=== PATIENT | female | born 1975 | race Caucasian/White ===

== ENCOUNTER → 2021-02-01 | Outpatient (CLI) | payer BC ==
[2021-02-01 16:23] VITALS: BP 155/99; PULSE 74; RESP 18; TEMP 98.2
--- NOTE | 2021-02-01 17:07 | P.GSHP ---
History of Present Illness H&P Date: 02/01/21 Chief Complaint: mass right breast Ina is a 45 year old white female seen in consultation for Dr. Milian/ Dr. Villanueva regarding a radiographic abnormality in the right breast. She had a bilateral mammogram performed on . This revealed an elliptical shaped de nsity within the parenchyma of the lateral portion of the right breast. Ultrasound was recommended. The left breast ultrasound was performed and 40s 1420 which revealed a complex cyst at the 3 o'clock position that may be amiable for aspiration delete BIRADS 4 designation was assigned to this. She then underwent a right breast ultrasound on 5520 and a solid-appearing nodule at 10:00 was identified which was 8 x 7 mm an ultrasound-guided core biopsy was recommended. The patient does not feel any lumps masses nodules or anything of concern in either breast. Additionally she is not complaining of any nipple discharge or skin changes. She has not had any recent trauma or infection of the breast. She's never had any biopsy of the breast. Caffeine: 1 monster in am/ 2 16 oz of cocoa/cola/day nicotine: 1PPD/18 years, is decreasing now Chocolate: Occasional Family history: father: lung cancer mother: cervical cancer maternal grandfather: colon cancer Hormonal history: Menarche: 13 , age at first : 29, breast fed: no periods had a mirena since 2006 no period since then Surgical history: gallbladder Retropubic bladder sling surgery January 18 Medical history: none Social History: Nicotine: Impacted daily for 18 years is decreasing now to one third pack a day Alcohol: Occasional Drugs: Negative - Constitutional Constitutional: Reports sweats - EENT Eyes: denies blurred vision, denies pain Ears: deny: decreased hearing, tinnitus Ears, nose, mouth and throat: Denies headache, Denies sore throat - Breasts Breasts: bilateral: as per HPI - Cardiovascular Cardiovascular: Denies chest pain, Denies shortness of breath - Respiratory Comment: smoker - Gastrointestinal Gastrointestinal: Denies abdominal pain, Denies diarrhea, Denies nausea, Denies vomiting - Genitourinary (Female) Comment: UTI several times a year Genitourinary: Denies dysuria, Denies hematuria - Menstruation Comment: [facility] prior to yadira has used this since 2006 - Musculoskeletal Musculoskeletal: Denies myalgias - Integumentary Integumentary: Denies pruritus, Denies rash - Neurological Neurological: Denies numbness, Denies weakness - Psychiatric Psychiatric: Denies anxiety, Denies depression - Endocrine Endocrine: Reports fatigue, Reports weight change - Hematologic/Lymphatic Comment: none - Allergic/Immunologic Allergic/Immunologic: Reports as per HPI Past Medical History Past Medical History: No Reported History History of Any Multi-Drug Resistant Organisms: None Reported Past Surgical History: Cholecystectomy Additional Past Surgical History / Comment(s): bladder sling 01/17/21 Past Anesthesia/Blood Transfusion Reactions: No Reported Reaction Past Psychological History: No Psychological Hx Reported Smoking Status: Current every day smoker - Past Family History Father Family Medical History: Cancer Additional Family Medical History / Comment(s): lung Mother Family Medical History: Cancer Additional Family Medical History / Comment(s): cervical cancer Medications and Allergies Home Medications Medication Instructions Recorded Confirmed Type Esomeprazole Magnesium [NexIUM] 20 mg PO DAILY 01/30/21 02/01/21 History Cholecalciferol [Vitamin D3 (25 50 mcg PO DAILY 02/01/21 02/01/21 History Mcg = 1000 Iu)] Allergies Allergy/AdvReac Type Severity Reaction Status Date / Time codeine AdvReac Nausea & Verified 02/01/21 16:17 Vomiting Surgical - Exam Vital Signs Temp Pulse Resp BP Pulse Ox 98.2 F 74 18 155/99 95 02/01/21 16:21 02/01/21 16:21 02/01/21 16:21 02/01/21 16:21 02/01/21 16:21 BMI 37.1 - General no distress - Eyes normal ocular movement - ENT no hearing loss - Neck no masses, trachea midline - Respiratory normal respiratory effort, clear to auscultation - Cardiovascular Heart Sounds: normal: S1, S2 - Abdomen Abdomen: soft - Integumentary normal turgor - Musculoskeletal normal gait - Psychiatric oriented to time, oriented to person, oriented to place, speech is normal, memory intact breast exam: BRA: 38D inspection: Right breast slightly larger than left breast, bilateral grade 2/3 ptosis Palpation: Right breast: Multi-positional exam fibrocystic changes, no dominant masses or nodules of concern Right axilla: No adenopathy of concern Left breast: Multi-positional exam fibrocystic changes, no dominant masses or nodules of concern Left axilla: No adenopathy of concern Assessment and Plan Assessment: Impression: 1. Fibrocystic breast changes 2. Abnormal bilateral ultrasound of the breast 3. Question regarding radiographic studies from multiple institutions Plan: 1. The patient is going to acquire her radiographic studies for us to review, depending on the review of the studies final recommendation to follow 2. Patient has been encouraged to stop smoking and decreased caffeine intake 3. I will see the patient back again as soon as we have the radiographic studies At this point the disc burner at [facility] is not functioning and the patient would be unable to acquire these films. CC: Dr. Villanueva, Dr. Milian Encounter 35 minutes, time spent in reviewing reports, physical examination, and counseling.
== END ==
LOC: WWCWWP 15:36
PROVIDERS: ATTEND Surgery
DX: N60.11 Diffuse cystic mastopathy of right breast (principal); N60.12 Diffuse cystic mastopathy of left breast; F17.210 Nicotine dependence, cigarettes, uncomplicated; Z88.5 Allergy status to narcotic agent

== ENCOUNTER → 2021-02-14 | Day surgery (SDC) | payer BC ==
[2021-02-14 12:11] VITALS: RESP 16
[2021-02-14 14:29] VITALS: BP 130/85; PULSE 89; TEMP 98.5
--- NOTE | 2021-02-14 14:39 | USB ---
EXAMINATION TYPE: US biopsy breast VAD RT, MG diagnostic mammo RT wo CAD, US breast aspiration single RT DATE OF EXAM: 02/14/2021 CLINICAL HISTORY: R92.8 Abnormal Mammogram. Abnormal ultrasound. TECHNIQUE: Ultrasound guided fine needle aspiration and core biopsy of right breast lesion with clip placement and follow-up mammogram. COMPARISON: Outside right breast ultrasound January 10, 2021 and outside mammogram December 20, 2020. FINDINGS: The procedure of ultrasound guided core biopsy was explained to the patient. Benefits, alternatives, and risks were discussed. An informed consent was then obtained. The patient was placed in supine positioning for imaging and for the procedure. Preprocedure ultrasound redemonstrated overall fibrocystic change with 9 mm round hypoechoic anechoic lesion deep 10:00 position right breast. The overlying skin was prepped and draped in usual sterile fashion. Lidocaine was used as anesthetic into the skin and subcutaneous tissue . Lidocaine with epinephrine is used as anesthetic into the deeper tissue up to area of concern in the right breast. Under ultrasound guidance, a 18-gauge needle was advanced into lesion and there was some aspiration of thick fluid. Because the lesion did not completely aspirate. Ultrasound-guided core biopsy was performed. Vacuum-assisted biopsy device was used to obtain 2 core samples. Following this, a biopsy clip was left in lesion. The patient tolerated the procedure well without any immediate complication. The patient was kept in the radiology department for short stay after the procedure and then discharged home in stable condition. Post procedure mammogram shows successful deployment of clip middle depth outer aspect at site of most prominent tissue along the anterior aspect of prior marked mammogram images. IMPRESSION: Successful, uncomplicated ultrasound guided fine needle aspiration and core biopsy of area of concern in the right breast, full pathology results to follow. Low index of suspicion noted at time of procedure. Pathology Results: High Risk RIGHT BREAST, TEN O'CLOCK, BIOPSY: Fibrocystic change with fragmented and benign fibrotic cyst wall, columnar cell change, focal usual ductal hyperplasia, focal microcalcification and focal features favoring atypical lobular hyperplasia (ALH). See note. A. RIGHT BREAST, 10:00 POSITION, ASPIRATE: Peripheral blood with acute and chronic inflammatory cells and favored cholesterol crystals on cytospins. Non- diagnostic for malignancy. B. RIGHT BREAST, 10:00 POSITION, ASPIRATE: Favor degenerated cyst contents and peripheral blood. Non-diagnostic for malignancy. Recommendation Surgical consult of the right breast. MTDD
== END ==
LOC: RADUSWWP 11:58
PROVIDERS: ATTEND Surgery
DX: N60.11 Diffuse cystic mastopathy of right breast (principal); N62 Hypertrophy of breast; R92.8 Other abnormal and inconclusive findings on diagnostic imaging of breast; Z88.5 Allergy status to narcotic agent
CPT/HCPCS: 88305; 88173; 77065; 19083; 10005; A4648; J2001; 76942

== ENCOUNTER 2021-02-15 18:09 | Emergency (ER) | payer BC ==
[2021-02-15 19:35] LABS: Appearance,Urine Clear (Clear); Bacteria,Urine Rare /hpf; Bilirubin,Urine Negative (Negative); Blood,Urine Small (Negative); Color,Urine Yellow; Glucose,Urine (UA) Negative (Negative); Ketones,Urine Negative (Negative); Leukocyte Esterase,Urine Negative (Negative); Mucus,Urine Rare /hpf; Nitrite,Urine Negative (Negative); PH, Urine 5.5 (5.0-8.0); Protein,Urine Trace (Negative); RBC,Urine 1 /hpf (0-5); Specific Gravity,Urine 1.009 (1.001-1.035); Squamous Epithelial Cell,Urine 2 /hpf (0-4); Urobilinogen,Urine <2.0 mg/dL (<2.0); WBC,Urine 1 /hpf (0-5)
[2021-02-15] MEDS ORDERED: ACETAMINOPHEN TAB 500 MG TAB PO STA (19:53)
--- NOTE | 2021-02-15 20:27 | XR ---
EXAMINATION: XR chest 1V portable DATE AND TIME: 02/15/2021 8:18 PM CLINICAL INDICATION: PHH; Fever TECHNIQUE: AP upright portable COMPARISON: None FINDINGS: The lungs are clear. The pleural spaces are negative. The cardiac silhouette is not enlarged. The remainder of the mediastinal silhouette is unremarkable. The skeletal structures and soft tissues are negative for acute findings. IMPRESSION: NO ACUTE PROCESS.
--- NOTE | 2021-02-15 20:51 | ED ---
Female Urogenital HPI - General Chief complaint: Urogenital Stated complaint: Fever Time Seen by Provider: 02/15/21 19:34 Source: patient Mode of arrival: ambulatory Limitations: no limitations - History of Present Illness Initial comments: 45 year-old female patient presents to the emergency department presents to the emergency department for evaluation of fever since the last 3 days. Patient had a bladder sling surgery about a month ago and is currently being treated for urinary tract infection. She is taking Cipro. She did previously take Macrobid for the same infection. Denies any cough or congestion. Denies sore throat. Denies nausea or vomiting. Denies any flank pain. Denies abnormal vaginal bleeding or discharge. She does have some abdominal cramping and urinary frequency but no dysuria. States she is fully vaccinated for COVID-19. Patient denies any recent rash, cough, shortness of breath, chest pain, diarrhea, constipation, back pain, numbness, tingling, dizziness, weakness, headache, visual changes, or any other complaints. - Related Data Home Medications Medication Instructions Recorded Confirmed Esomeprazole Magnesium [NexIUM] 20 mg PO DAILY 01/30/21 02/15/21 Cholecalciferol [Vitamin D3 (25 50 mcg PO DAILY 02/01/21 02/15/21 Mcg = 1000 Iu)] Ciprofloxacin HCl [Cipro] 500 mg PO BID 02/15/21 02/15/21 Allergies Allergy/AdvReac Type Severity Reaction Status Date / Time codeine AdvReac Nausea & Verified 02/15/21 22:32 Vomiting Review of Systems ROS Statement: Those systems with pertinent positive or pertinent negative responses have been documented in the HPI. ROS Other: All systems not noted in ROS Statement are negative. Past Medical History Past Medical History: No Reported History History of Any Multi-Drug Resistant Organisms: None Reported Past Surgical History: Cholecystectomy Additional Past Surgical History / Comment(s): bladder sling 01/17/21 Past Anesthesia/Blood Transfusion Reactions: No Reported Reaction Past Psychological History: No Psychological Hx Reported Smoking Status: Current every day smoker Past Alcohol Use History: Rare Past Drug Use History: None Reported - Past Family History Father Family Medical History: Cancer Additional Family Medical History / Comment(s): lung Mother Family Medical History: Cancer Additional Family Medical History / Comment(s): cervical cancer General Exam Limitations: no limitations General appearance: alert, in no apparent distress, other (Physical well- developed, well-nourished adult female patient in no acute distress. Vital signs upon presentation are temperature 100.6F, pulse 104, respirations 20, blood pressure 159/90, pulse ox 96% on room air.) Eye exam: Present: normal appearance, PERRL, EOMI. Absent: scleral icterus, conjunctival injection, periorbital swelling ENT exam: Present: normal exam, normal oropharynx, mucous membranes moist Respiratory exam: Present: normal lung sounds bilaterally. Absent: respiratory distress, wheezes, rales, rhonchi, stridor Cardiovascular Exam: Present: normal rhythm, tachycardia, normal heart sounds. Absent: systolic murmur, diastolic murmur, rubs, gallop, clicks GI/Abdominal exam: Present: soft, tenderness (suprapubic), normal bowel sounds. Absent: distended, guarding, rebound, rigid Neurological exam: Present: alert, oriented X3, CN II-XII intact Psychiatric exam: Present: normal affect, normal mood Skin exam: Present: warm, dry, intact, normal color. Absent: rash Course Vital Signs 02/15/21 02/15/21 02/15/21 18:29 21:00 22:40 Temperature 98.4 F 98.8 F Pulse Rate 104 H 93 96 Respiratory 20 18 18 Rate Blood Pressure 159/90 137/70 140/87 O2 Sat by Pulse 96 99 97 Oximetry Medical Decision Making - Medical Decision Making 45-year-old female patient presented to the emergency department today for evaluation of fever for the last 3 days. Physical examination is unremarkable. Abdomen soft, some mild tenderness in the suprapubic region. No CVA tenderness. Lungs are clear to auscultation. She had 100.6 temperature here, did give her some Tylenol. Labs reviewed and revealed normal white blood cell count. Lactic acid normal. Chest x-ray negative. Urinalysis shows no sign of infection. She is currently taking Cipro. Did discuss findings and results with her. We did obtain blood cultures. Instructed to continue the Cipro and to follow-up with her primary care physician for recheck in 1-2 days. Return parameters were discussed in detail. She verbalizes understanding and agrees with this plan. Case discussed with my attending Dr. Santos. - Lab Data Result diagrams: 02/15/21 Unknown 02/15/21 Unknown Lab Results 02/15/21 02/15/21 02/15/21 Range/Units 19:14 Unknown Unknown WBC 10.1 (3.8-10.6) k/uL RBC 4.52 (3.80-5.40) m/uL Hgb 14.4 (11.4-16.0) gm/dL Hct 42.7 (34.0-46.0) % MCV 94.4 (80.0-100.0) fL MCH 31.8 (25.0-35.0) pg MCHC 33.7 (31.0-37.0) g/dL RDW 12.9 (11.5-15.5) % Plt Count 331 (150-450) k/uL MPV 7.6 Neutrophils % 62 % Lymphocytes % 26 % Monocytes % 5 % Eosinophils % 4 % Basophils % 1 % Neutrophils # 6.2 (1.3-7.7) k/uL Lymphocytes # 2.7 (1.0-4.8) k/uL Monocytes # 0.5 (0-1.0) k/uL Eosinophils # 0.5 (0-0.7) k/uL Basophils # 0.1 (0-0.2) k/uL PT 9.7 (9.0-12.0) sec INR 0.9 (<1.2) APTT 21.0 L (22.0-30.0) sec Sodium (137-145) mmol/L Potassium (3.5-5.1) mmol/L Chloride (98-107) mmol/L Carbon Dioxide (22-30) mmol/L Anion Gap mmol/L BUN (7-17) mg/dL Creatinine (0.52-1.04) mg/dL Est GFR (CKD-EPI)AfAm (>60 ml/min/1.73 sqM) Est GFR (CKD-EPI)NonAf (>60 ml/min/1.73 sqM) Glucose (74-99) mg/dL Plasma Lactic Acid Abram (0.7-2.0) mmol/L Calcium (8.4-10.2) mg/dL Total Bilirubin (0.2-1.3) mg/dL AST (14-36) U/L ALT (4-34) U/L Alkaline Phosphatase (38-126) U/L Total Protein (6.3-8.2) g/dL Albumin (3.5-5.0) g/dL Urine Color Yellow Urine Appearance Clear (Clear) Urine pH 5.5 (5.0-8.0) Ur Specific Newton 1.009 (1.001-1.035) Urine Protein Trace H (Negative) Urine Glucose (UA) Negative (Negative) Urine Ketones Negative (Negative) Urine Blood Small H (Negative) Urine Nitrite Negative (Negative) Urine Bilirubin Negative (Negative) Urine Urobilinogen <2.0 (<2.0) mg/dL Ur Leukocyte Esterase Negative (Negative) Urine RBC 1 (0-5) /hpf Urine WBC 1 (0-5) /hpf Ur Squamous Epith Cells 2 (0-4) /hpf Urine Bacteria Rare H (None) /hpf Urine Mucus Rare H (None) /hpf Urine HCG, Qual (Not Detectd) Coronavirus (PCR) (Not Detectd) 02/15/21 02/15/21 02/15/21 Range/Units Unknown Unknown Unknown WBC (3.8-10.6) k/uL RBC (3.80-5.40) m/uL Hgb (11.4-16.0) gm/dL Hct (34.0-46.0) % MCV (80.0-100.0) fL MCH (25.0-35.0) pg MCHC (31.0-37.0) g/dL RDW (11.5-15.5) % Plt Count (150-450) k/uL MPV Neutrophils % % Lymphocytes % % Monocytes % % Eosinophils % % Basophils % % Neutrophils # (1.3-7.7) k/uL Lymphocytes # (1.0-4.8) k/uL Monocytes # (0-1.0) k/uL Eosinophils # (0-0.7) k/uL Basophils # (0-0.2) k/uL PT (9.0-12.0) sec INR (<1.2) APTT (22.0-30.0) sec Sodium 139 (137-145) mmol/L Potassium 4.6 (3.5-5.1) mmol/L Chloride 104 (98-107) mmol/L Carbon Dioxide 26 (22-30) mmol/L Anion Gap 9 mmol/L BUN 7 (7-17) mg/dL Creatinine 0.60 (0.52-1.04) mg/dL Est GFR (CKD-EPI)AfAm >90 (>60 ml/min/1.73 sqM) Est GFR (CKD-EPI)NonAf >90 (>60 ml/min/1.73 sqM) Glucose 91 (74-99) mg/dL Plasma Lactic Acid Abram 1.4 (0.7-2.0) mmol/L Calcium 9.9 (8.4-10.2) mg/dL Total Bilirubin 0.4 (0.2-1.3) mg/dL AST 142 H (14-36) U/L ALT 185 H (4-34) U/L Alkaline Phosphatase 99 (38-126) U/L Total Protein 7.6 (6.3-8.2) g/dL Albumin 4.7 (3.5-5.0) g/dL Urine Color Urine Appearance (Clear) Urine pH (5.0-8.0) Ur Specific Newton (1.001-1.035) Urine Protein (Negative) Urine Glucose (UA) (Negative) Urine Ketones (Negative) Urine Blood (Negative) Urine Nitrite (Negative) Urine Bilirubin (Negative) Urine Urobilinogen (<2.0) mg/dL Ur Leukocyte Esterase (Negative) Urine RBC (0-5) /hpf Urine WBC (0-5) /hpf Ur Squamous Epith Cells (0-4) /hpf Urine Bacteria (None) /hpf Urine Mucus (None) /hpf Urine HCG, Qual (Not Detectd) Coronavirus (PCR) Not Detected (Not Detectd) 02/15/21 Range/Units Unknown WBC (3.8-10.6) k/uL RBC (3.80-5.40) m/uL Hgb (11.4-16.0) gm/dL Hct (34.0-46.0) % MCV (80.0-100.0) fL MCH (25.0-35.0) pg MCHC (31.0-37.0) g/dL RDW (11.5-15.5) % Plt Count (150-450) k/uL MPV Neutrophils % % Lymphocytes % % Monocytes % % Eosinophils % % Basophils % % Neutrophils # (1.3-7.7) k/uL Lymphocytes # (1.0-4.8) k/uL Monocytes # (0-1.0) k/uL Eosinophils # (0-0.7) k/uL Basophils # (0-0.2) k/uL PT (9.0-12.0) sec INR (<1.2) APTT (22.0-30.0) sec Sodium (137-145) mmol/L Potassium (3.5-5.1) mmol/L Chloride (98-107) mmol/L Carbon Dioxide (22-30) mmol/L Anion Gap mmol/L BUN (7-17) mg/dL Creatinine (0.52-1.04) mg/dL Est GFR (CKD-EPI)AfAm (>60 ml/min/1.73 sqM) Est GFR (CKD-EPI)NonAf (>60 ml/min/1.73 sqM) Glucose (74-99) mg/dL Plasma Lactic Acid Abram (0.7-2.0) mmol/L Calcium (8.4-10.2) mg/dL Total Bilirubin (0.2-1.3) mg/dL AST (14-36) U/L ALT (4-34) U/L Alkaline Phosphatase (38-126) U/L Total Protein (6.3-8.2) g/dL Albumin (3.5-5.0) g/dL Urine Color Urine Appearance (Clear) Urine pH (5.0-8.0) Ur Specific Newton (1.001-1.035) Urine Protein (Negative) Urine Glucose (UA) (Negative) Urine Ketones (Negative) Urine Blood (Negative) Urine Nitrite (Negative) Urine Bilirubin (Negative) Urine Urobilinogen (<2.0) mg/dL Ur Leukocyte Esterase (Negative) Urine RBC (0-5) /hpf Urine WBC (0-5) /hpf Ur Squamous Epith Cells (0-4) /hpf Urine Bacteria (None) /hpf Urine Mucus (None) /hpf Urine HCG, Qual Not Detected (Not Detectd) Coronavirus (PCR) (Not Detectd) - Radiology Data Radiology results: report reviewed, image reviewed One view of the chest shows no acute process. Disposition Clinical Impression: Fever, Transaminitis Disposition: HOME SELF-CARE Condition: Good Instructions (If sedation given, give patient instructions): Fever in Adults (ED) Additional Instructions: Follow-up with the primary care physician for recheck in 1-2 days. Liver enzymes are elevated. Continue your antibiotics. Return to the emergency department for any new, worsening, or concerning symptoms. Is patient prescribed a controlled substance at d/c from ED?: No Referrals: Antonio Milian MD [Primary Care Provider] - 1-2 days Time of Disposition: 22:33
[2021-02-15] MEDS: SODIUM CHLORIDE 0.9% 500 ML 500 ML IV SCH ×2 (20:57→20:58)
[2021-02-15 21:04] LABS: Basophils # (A) 0.1 k/uL (0-0.2); Basophils % (A) 1 %; Eosinophils # (A) 0.5 k/uL (0-0.7); Eosinophils % (A) 4 %; HCT 42.7 % (34.0-46.0); HGB 14.4 gm/dL (11.4-16.0); Lymphocytes # (A) 2.7 k/uL (1.0-4.8); Lymphocytes % (A) 26 %; MCH 31.8 pg (25.0-35.0); MCHC 33.7 g/dL (31.0-37.0); MCV 94.4 fL (80.0-100.0); Mean Platelet Volume 7.6; Monocytes # (A) 0.5 k/uL (0-1.0); Monocytes % (A) 5 %; Neutrophils # (A) 6.2 k/uL (1.3-7.7); Neutrophils % (A) 62 %; Platelet Count 331 k/uL (150-450); RBC 4.52 m/uL (3.80-5.40); RDW 12.9 % (11.5-15.5); WBC 10.1 k/uL (3.8-10.6)
[2021-02-15 21:26] LABS: INR 0.9 (<1.2); Prothrombin Time 9.7 sec (9.0-12.0)
[2021-02-15 21:31] LABS: ALT 185 U/L (4-34); AST 142 U/L (14-36); African American GFR (CKD) >90 (>60 ml/min/1.73 sqM); Albumin 4.7 g/dL (3.5-5.0); Alkaline Phosphatase 99 U/L (38-126); Anion Gap 9 mmol/L; Blood Urea Nitrogen 7 mg/dL (7-17); Calcium 9.9 mg/dL (8.4-10.2); Carbon Dioxide 26 mmol/L (22-30); Chloride 104 mmol/L (98-107); Glucose 91 mg/dL (74-99); Non-African American GFR(CKD) >90 (>60 ml/min/1.73 sqM); Sodium 139 mmol/L (137-145); Total Bilirubin 0.4 mg/dL (0.2-1.3); Total Protein 7.6 g/dL (6.3-8.2)
[2021-02-15 21:39] LABS: Potassium 4.6 mmol/L (3.5-5.1)
[2021-02-15 21:53] VITALS: RESP 18
[2021-02-15 23:12] VITALS: BP 140/87; PULSE 96; TEMP 98.8
== END 2021-02-15 22:40 | disposition home or self-care (01) ==
LOC: EC 18:09
DX: R50.9 Fever, unspecified (principal); R74.01 Elevation of levels of liver transaminase levels; R10.30 Lower abdominal pain, unspecified; F17.200 Nicotine dependence, unspecified, uncomplicated; Z20.822 Contact with and (suspected) exposure to COVID-19
CPT/HCPCS: 36415; 71045; 80053; 81001; 81025; 83605; 85025; 85610; 85730; 87040; 87635; 99284

== ENCOUNTER → 2021-02-23 | Outpatient (CLI) | payer BC ==
[2021-02-23 13:58] VITALS: BP 126/84; PULSE 85; RESP 18; TEMP 98.4
--- NOTE | 2021-02-23 14:03 | P.PN ---
Subjective Progress Note Date: 02/23/21 Principal diagnosis: Atypical lobular hyperplasia on ultrasound-guided core biopsy of the right breast Ina is a 45-year-old of white female who underwent an ultrasound-guided core biopsy of the right breast and 6921. Pathology revealed atypical lobular hyperplasia. She tolerated the procedure without difficulty. The importance is the fact that she is scheduled in the near future for excision of vulvar lesion which was pre-cancer. This is going to be done in the [place] area. Objective - Vital Signs Vital signs: Vital Signs Temp 98.4 F 02/23/21 13:55 Pulse 85 02/23/21 13:55 Resp 18 02/23/21 13:55 BP 126/84 02/23/21 13:55 Pulse Ox 93 L 02/23/21 13:55 Intake & Output 02/22/21 02/23/21 02/23/21 18:59 06:59 18:59 Weight 101.151 kg - Exam BMI 37.1 - Constitutional General appearance: Present: cooperative - EENT Eyes: Present: EOMI ENT: Present: hearing grossly normal - Neck Neck: Present: normal ROM - Integumentary Integumentary Comment(s): Biopsy site clean and dry, no evidence of infection or hematoma - Musculoskeletal Musculoskeletal: Present: gait normal - Psychiatric Psychiatric: Present: A&O x's 3, appropriate affect, intact judgment & insight Assessment and Plan Assessment: Impression: 1. Atypical lobular hyperplasia right breast on ultrasound-guided core biopsy 2. Fibrocystic breast changes 3. Vulvar skin lesion which is precancerous being seen in the [facility] for excision Plan: 1. Needle localization excisional lumpectomy area of atypical lobular hyperplasia right breast, possible hyperplastic tissue transfer 2. Patient is going to have the vulvar skin lesion taken care of first in the [facility] Risks and benefits of the procedure discussed with the patient. She understands and wishes to proceed. This was scheduled in the near future. CC: Dr. Margaret Villanueva, Dr. Milian
== END ==
LOC: WWCWWP 13:03
PROVIDERS: ATTEND Surgery
DX: N60.91 Unspecified benign mammary dysplasia of right breast (principal); N60.19 Diffuse cystic mastopathy of unspecified breast; N90.89 Other specified noninflammatory disorders of vulva and perineum; Z88.5 Allergy status to narcotic agent

== ENCOUNTER → 2021-05-03 | Outpatient (CLI) | payer BC ==
[2021-05-03 08:51] VITALS: BP 156/96; PULSE 88; RESP 16; TEMP 98.4
--- NOTE | 2021-05-03 09:14 | P.PN ---
Subjective Progress Note Date: 05/03/21 Principal diagnosis: Atypical lobular hyperplasia right breast Ina is a 46-year-old white female status post ultrasound-guided core biopsy of the right breast on 6920. Pathology revealed atypical lobular hyperplasia. She tolerated the procedure without difficulty. She was scheduled for excision of vulvar lesion which was pretty cancer. This was performed on March 05, and she is healed well without difficulty. She is now going to undergo a needle localization and excision of the area of atypia on the right breast. She has also undergone a left breast ultrasound and recommendation as per Dr. Lux/radiology was repeat ultrasound in 6 months of the left side. Caffeine: 1 monster in am/ 2 16 oz of cocoa/cola/day nicotine: 1PPD/18 years, is decreasing now Chocolate: Occasional Family history: father: lung cancer mother: cervical cancer maternal grandfather: colon cancer Hormonal history: Menarche: 13 , age at first : 29, breast fed: no periods had a mirena since 2006 no period since then Surgical history: gallbladder Retropubic bladder sling surgery January 18 Medical history: none Social History: Nicotine: Impacted daily for 18 years is decreasing now to one third pack a day Alcohol: Occasional Drugs: Negative - Constitutional Constitutional: Reports sweats - EENT Eyes: denies blurred vision, denies pain Ears: deny: decreased hearing, tinnitus Ears, nose, mouth and throat: Denies headache, Denies sore throat - Breasts Breasts: bilateral: as per HPI - Cardiovascular Cardiovascular: Denies chest pain, Denies shortness of breath - Respiratory Comment: smoker - Gastrointestinal Gastrointestinal: Denies abdominal pain, Denies diarrhea, Denies nausea, Denies vomiting - Genitourinary (Female) Comment: UTI several times a year Genitourinary: Denies dysuria, Denies hematuria - Menstruation Comment: [facility] prior to yadira has used this since 2006 - Musculoskeletal Musculoskeletal: Denies myalgias - Integumentary Integumentary: Denies pruritus, Denies rash - Neurological Neurological: Denies numbness, Denies weakness - Psychiatric Psychiatric: Denies anxiety, Denies depression - Endocrine Endocrine: Reports fatigue, Reports weight change - Hematologic/Lymphatic Comment: none - Allergic/Immunologic Allergic/Immunologic: Reports as per HPI Objective - Vital Signs Vital signs: Vital Signs Temp 98.4 F 05/03/21 08:48 Pulse 88 05/03/21 08:48 Resp 16 05/03/21 08:48 BP 156/96 05/03/21 08:48 Pulse Ox 95 05/03/21 08:48 Intake & Output 05/02/21 05/03/21 05/03/21 18:59 06:59 18:59 Weight 92.079 kg - Exam BMI 34.8 - Constitutional General appearance: Present: cooperative - EENT Eyes: Present: EOMI ENT: Present: hearing grossly normal - Neck Neck: Present: normal ROM - Respiratory Respiratory: bilateral: CTA - Cardiovascular Heart sounds: normal: S1, S2 - Gastrointestinal General gastrointestinal: Present: soft - Integumentary Integumentary: Present: normal turgor - Musculoskeletal Musculoskeletal: Present: gait normal - Psychiatric Psychiatric: Present: A&O x's 3, appropriate affect, intact judgment & insight - Additional findings Additional findings: Breast Exam: BRA: 38C Inspection: Bilateral grade 2 ptosis Palpation: Right breast slightly larger than the left breast, multiple positional exam no dominant masses or nodules of concern Right axilla: No adenopathy of concern Left breast: Multiple positional exam no dominant masses or nodules of concern, fibrocystic changes Left axilla: No adenopathy of concern Assessment and Plan Assessment: Impression: 1. Atypical lobular hyperplasia right breast 2. Fibrocystic breast changes 3. Recent resection of vulvar lesion Plan: 1. Needle local excisional biopsy right breast lesion, possible undergo plastic tissue transfer 2. Repeat left breast ultrasound 6 months CC: Dr. Milian
== END | disposition home or self-care (01) ==
LOC: WWCWWP 08:31
PROVIDERS: ATTEND Surgery
DX: Z53.9 Procedure and treatment not carried out, unspecified reason (principal)

== ENCOUNTER 2021-05-15 09:44 | Day surgery (SDC) | payer BC, OTHER ==
[2021-05-10 09:15] VITALS: BMI 33.7
[~2021-05-15 09:44] MED LIST: DEXAMETHASONE SOD PHOSPHATE 4 MG/ML 1 ML VIAL IV ONE; HEPARIN SODIUM,PORCINE/PF 5,000 UNIT/0.5 ML SYRINGE SQ PRN; LACTATED RINGERS 1,000 ML IV SCH; LIDOCAINE 1% (10MG/ML) FOR IV START INTRADERMA PRN; ONDANSETRON 4 MG/2 ML VIAL IVP ONE; Pre Op ABX Message 1 EACH MISC MISCELLANE ONE; SCOPOLAMINE 1.5MG/72HR PATCH TRANSDERM ONE; fentaNYL (PF) 50 MCG/ML 2 ML AMP IV PRN
[2021-05-15] MEDS ORDERED: ALPRAZolam 0.5 MG TAB ONE (10:27)
[2021-05-15] MEDS ORDERED: LIDOCAINE 1% INJ 10MG/ML (20 ML MDV) SQ ONE ×3 (11:24→13:02)
[2021-05-15] MEDS ORDERED: DEXAMETHASONE SOD PHOSPHATE 4 MG/ML 1 ML VIAL IVP ONE (12:23)
[2021-05-15] MEDS ORDERED: SUCCINYLCHOLINE CHLORIDE VIAL 200 MG/10 ML VIAL IV ONE (12:36)
[2021-05-15] MEDS ORDERED: MIDAZOLAM 2 MG/2 ML VIAL ONE (12:36)
[2021-05-15] MEDS ORDERED: LIDOCAINE 1% INJ 10MG/ML (20 ML MDV) ONE (12:36)
[2021-05-15] MEDS ORDERED: ROCURONIUM 10 MG/ML (5 ML VIAL) IV ONE (12:36)
[2021-05-15] MEDS ORDERED: HYDROmorphone (PF) 1 MG/ML ONE (12:36)
[2021-05-15] MEDS ORDERED: fentaNYL (PF) 50 MCG/ML 2 ML AMP ONE (12:36)
--- NOTE | 2021-05-15 13:27 | P.OP ---
Date of Procedure: 05/15/21 Preoperative Diagnosis: Right breast core biopsy atypical lobular hyperplasia Postoperative Diagnosis: Same Procedure(s) Performed: needle localization excisional biopsy Anesthesia: KATHERINE Surgeon: Fide Lee Estimated Blood Loss (ml): 5 IV fluids (ml): 700 Pathology: other (Breast tissue) Condition: stable Disposition: same day Indications for Procedure: Core Biopsy atypical lobular hyperplasia Operative Findings: Dense breast tissue Description of Procedure: Following needle localization the area of concern in the right breast was prepped and draped in a sterile fashion. An incision was made and carried down the shaft of the needle into the surrounding tissue. The tissue was very dense. The specimen was removed and painted for orientation. Clips were placed into the cavity to localize the cavity. The specimen was radiographed and the area of concern had been removed. The wound was well irrigated. After we were assured that hemostasis was attained the deep tissues were closed using 3-0 Vicryl suture. The skin was closed using 4-0 Monocryl. Patient tolerated the procedure in stable condition. All instrument and sponge counts were correct at the end of the case
--- NOTE | 2021-05-15 13:30 | P.DS ---
Providers Attending physician: Fide Lee Primary care physician: Rafal Milian Plan - Discharge Summary Discharge Rx Participant: Yes New Discharge Prescriptions: No Action Esomeprazole Magnesium [NexIUM] 20 mg PO DAILY Discharge Medication List Esomeprazole Magnesium [NexIUM] 20 mg PO DAILY 01/30/21 [History] Follow up Appointment(s)/Referral(s): Fide Lee MD [STAFF PHYSICIAN] - 05/24/21 11:20 am Activity/Diet/Wound Care/Special Instructions: do not drive today may shower after 48 hours wear bra at all times unless showering Discharge Disposition: HOME SELF-CARE
[2021-05-15 13:51] VITALS: TEMP 98
[2021-05-15 14:51] VITALS: RESP 20
[2021-05-15 15:15] VITALS: BP 123/84; PULSE 77
--- NOTE | 2021-05-15 15:47 | MM ---
EXAMINATION TYPE: MG pre op needle loc RT DATE OF EXAM: 05/15/2021 COMPARISON: NONE CLINICAL HISTORY: Abnormal biopsy TECHNIQUE: Needle localization with wire placement and surgical excision of area of concern in the right breast. FINDINGS: The procedure of needle localization with wire placement for surgical excision was explained to the patient. Risk, benefits, and alternatives were discussed. An informed consent was then obtained. A timeout was performed. The overlying skin was prepped and draped in usual sterile fashion. Lidocaine 1% was used as anesthetic into the skin and subcutaneous tissue up to the level of area of concern. A 5 cm needle was used. This was placed via a lateral approach under mammographic guidance. Subsequent 90 degrees mammogram show the needle to be in satisfactory position relative to the targeted area. The wire was placed through the needle with difficulty and the needle was withdrawn. As the wire could not be advanced out of the tip of the needle this was felt to be not adequately advanced and the procedure was repeated with a 7 cm needle. With difficulty the wire was deployed which is in good position for surgical localization to this very hard tissue. The wire was fixed to patient's skin. Images were marked for surgeon. The patient tolerated the procedure well. Patient did have bleeding which required compression during this procedure. Images are reviewed and the case discussed with the referring surgeon. Specimen: The wires and the targeted surgical clip are identified within the specimen mammogram. IMPRESSION: 1. Successful wire localization and excision. Recommendations: 1. Recommendations are pending pathology results. Pathology Results: Benign RIGHT BREAST, NEEDLE LOCALIZATION EXCISION: Focal atypical lobular hyperplasia (ALH) in a background of fibrocystic changes including focal moderate to florid usual type ductal hyperplasia and calcifications. 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 Negative for malignancy. Recommendation Follow up mammogram of the right breast in 6 months. LIBBY
== END 2021-05-15 15:17 | disposition home or self-care (01) ==
LOC: OR 09:44
PROVIDERS: ATTEND Surgery
DX: N60.91 Unspecified benign mammary dysplasia of right breast (principal); N60.11 Diffuse cystic mastopathy of right breast; F17.210 Nicotine dependence, cigarettes, uncomplicated; Z80.49 Family history of malignant neoplasm of other genital organs; Z80.1 Family history of malignant neoplasm of trachea, bronchus and lung; Z80.0 Family history of malignant neoplasm of digestive organs; Z90.49 Acquired absence of other specified parts of digestive tract; R92.1 Mammographic calcification found on diagnostic imaging of breast
CPT/HCPCS: 19125; 88307; 76098; 19281; C1819 ×2; J2250; J0330; J1100; J2405; J2001; J3010; J1170; J1644

== ENCOUNTER → 2021-05-24 | Outpatient (CLI) | payer BC, OTHER ==
[2021-05-24 11:48] VITALS: BP 129/84; PULSE 76; RESP 16; TEMP 98.1
--- NOTE | 2021-05-24 12:05 | P.PN ---
Progress Note - Text Progress Note Date: 05/24/21 Ina is a 46-year-old white female status post needle local and excisional biopsy of the right breast on 9720. Pathology revealed focal atypical lobular hyperplasia in a background of fibrocystic changes. The patient has done well postoperatively. Bindu risk evaluation was performed: 5 year risk: 2.8% lifetime risk: 23.2 % Physical Exam: lungs: clear heart: RRR I have discussed risk reduction hormonal prophylaxis. The patient at this time is not interested. Plan: Repeat right breast mammogram in 6 months with physician exam at that time CC: Dr. Milian
== END | disposition home or self-care (01) ==
LOC: WWCWWP 11:14
PROVIDERS: ATTEND Surgery
DX: Z53.9 Procedure and treatment not carried out, unspecified reason (principal)

== ENCOUNTER → 2021-08-08 | Outpatient (CLI) | payer BC, OTHER ==
--- NOTE | 2021-08-09 08:42 | USB ---
Reason for exam: additional evaluation requested from abnormal screening. History: Patient has history of high-risk lesion on a previous biopsy at age 45. Benign MG pre op needle loc RT of the right breast, May 15, 2021. High risk US breast aspiration single RT of the right breast, February 14, 2021. High risk US biopsy breast VAD RT of the right breast, February 14, 2021. Physical Findings: Nurse did not find any significant physical abnormalities on exam. US Breast Limited LT Technologist: Margaret Kemp Left limited breast ultrasound including focal area of concern, retroareolar and axilla demonstrates a 0.4 x 0.6 x 0.3cm lesion at 12 o'clock, a 0.6 x 0.9 x 0.4cm cystic cluster at 2 o'clock, a 0.9 x 0.7 x 0.6cm lesion at 3 o'clock, may have interval echoes, short term follow up recommended, a 1.0 x 0.7 x 0.6cm cystic lesion at 4 o'clock and a 0.9 x 0.9 x 0.7cm cystic lesion at the nipple. These results were verbally communicated with the patient and result sheet given to the patient on 08/08/21. ASSESSMENT: Probably benign, BI-RAD 3 RECOMMENDATION: Ultrasound of the left breast in 6 months.
== END | disposition home or self-care (01) ==
LOC: RADUSWWP 14:53
PROVIDERS: ATTEND Surgery
DX: R92.8 Other abnormal and inconclusive findings on diagnostic imaging of breast (principal)

== ENCOUNTER → 2021-08-16 | Outpatient (CLI) | payer BC, OTHER ==
[2021-08-16 15:51] VITALS: BP 143/96; PULSE 83; RESP 18; TEMP 97.7
--- NOTE | 2021-08-16 16:02 | P.PN ---
Subjective Progress Note Date: 08/16/21 Principal diagnosis: Fibrocystic breast changes, atypical lobular hyperplasia right breast Atypical lobular hyperplasia right breast Ina is a 46-year-old white female status post ultrasound-guided core biopsy of the right breast on 6920. Pathology revealed atypical lobular hyperplasia. She tolerated the procedure without difficulty. She was scheduled for excision of vulvar lesion which was pre cancer. This was performed on March 05, and she healed well without difficulty. She then underwent a needle localization and excision of the area of atypia in the right breast. This was performed on 9720. This revealed focal atypical lobular hyperplasia in a background of fibrocystic changes including focal moderate to florid usual type ductal hyperplasia and calcifications, negative for malignancy. She has also undergone a left breast ultrasound and recommendation as per Dr. Lux/radiology was repeat ultrasound in 6 months of the left side. She had a repeat left breast ultrasound on which revealed a 0.4 x 0.6 cm lesion at 12:00 0.6 x 0.9 cm cystic cluster at 2:00 Circumflex 0.9 x 0.7 cm lesion at 3:00 1 x 0.7 cm cystic lesion at 4:00 In the 0.9 x 0.9 cm cystic lesion at the nipple The lesion at 3:00 was felt to have questionable internal echoes in short-term follow-up in 6 months was recommended. The patient has not noted any new changes in her breast. Bindu Risk Analysis: 5 year risk: 2.8 lifetime risk: 23.2% We have discussed chemoprevention at this time the patient has declined. Caffeine: stopped 1 monster in am/ stopped 2 16 oz of coca/cola/day nicotine: 1PPD/18 years, is decreasing now Chocolate: Occasional Family history: father: lung cancer mother: cervical cancer maternal grandfather: colon cancer Hormonal history: Menarche: 13 , age at first : 29, breast fed: no periods had a mirena since 2006 no period since then Surgical history: gallbladder Retropubic bladder sling surgery January 18, 2021 Medical history: none Social History: Nicotine: 1 pack daily for 18 years is decreasing now to one third pack a day Alcohol: Occasional Drugs: Negative - Constitutional Constitutional: Reports sweats - EENT Eyes: denies blurred vision, denies pain Ears: deny: decreased hearing, tinnitus Ears, nose, mouth and throat: Denies headache, Denies sore throat - Breasts Breasts: bilateral: as per HPI - Cardiovascular Cardiovascular: Denies chest pain, Denies shortness of breath - Respiratory Comment: smoker - Gastrointestinal Gastrointestinal: Denies abdominal pain, Denies diarrhea, Denies nausea, Denies vomiting - Genitourinary (Female) Comment: UTI several times a year Genitourinary: Denies dysuria, Denies hematuria - Menstruation Comment: [facility] prior to yadira has used this since 2006 - Musculoskeletal Musculoskeletal: Denies myalgias - Integumentary Integumentary: Denies pruritus, Denies rash - Neurological Neurological: Denies numbness, Denies weakness - Psychiatric Psychiatric: Denies anxiety, Denies depression - Endocrine Endocrine: Reports fatigue, Reports weight change - Hematologic/Lymphatic Comment: none - Allergic/Immunologic Allergic/Immunologic: Reports as per HPI Objective - Constitutional General appearance: Present: cooperative - EENT Eyes: Present: EOMI ENT: Present: hearing grossly normal - Neck Neck: Present: normal ROM - Respiratory Respiratory: bilateral: CTA - Cardiovascular Heart sounds: normal: S1, S2 - Integumentary Integumentary: Present: normal turgor - Musculoskeletal Musculoskeletal: Present: gait normal - Psychiatric Psychiatric: Present: A&O x's 3, appropriate affect, intact judgment & insight - Additional findings Additional findings: Breast Exam: BRA: 38C Inspection: Grade 2 ptosis bilaterally Palpation: Right breast slightly larger than left breast, multi-positional exam no dominant masses or nodules of concern Right axilla: No adenopathy of concern Left breast: Multi-positional exam no dominant masses or nodules of concern fibrocystic changes Left axilla: No adenopathy of concern Assessment and Plan Assessment: Impression: 1. Atypical lobular hyperplasia right breast 2. Fibrocystic breast changes 3. Resection of vulvar lesion 4. Recent left breast ultrasound benign BIRADS 3 Plan: 1. Repeat ultrasound of the left breast in 6 months 2. Bilateral mammogram in December 2020 with physician exam at that time 3. Patient follow up sooner and her questions or concerns CC: Dr. Margaret Villanueva
== END ==
LOC: WWCWWP 15:39
PROVIDERS: ATTEND Surgery
DX: Z53.9 Procedure and treatment not carried out, unspecified reason (principal)

== ENCOUNTER 2021-10-09 09:19 | Observation (INO) | payer BC, OTHER ==
[2021-10-09] MEDS ORDERED: methylPREDNISolone SOD SUCCI 125 MG/2 ML VIAL IV STA (09:36)
[2021-10-09] MEDS ORDERED: IPRATROPIUM 0.5 MG/2.5 ML NEBU INHALATION STA (09:36)
[2021-10-09] MEDS ORDERED: SODIUM CHLORIDE 0.9% 500 ML 500 ML IV STA (09:36)
[2021-10-09] MEDS ORDERED: ALBUTEROL NEBULIZED 2.5 MG/3 ML INHALATION STA (09:36)
--- NOTE | 2021-10-09 09:41 | ED ---
General Adult HPI - General Chief complaint: Shortness of Breath Stated complaint: PAUL/Cough Time Seen by Provider: 10/09/21 09:20 Source: patient, family, RN notes reviewed, old records reviewed Mode of arrival: ambulatory Limitations: no limitations - History of Present Illness Initial comments: This is a 46-year-old female presents to the emergency department complaining of a cough and shortness of breath since September 17. Patient states she has been on antibiotics and steroids and was tested for COVID which was negative. Patient states she continues to cough and short of breath so she decided come the emergency department. Patient states she also took a course of doxycycline. Patient states she is a smoker. Patient denies any calf pain patient denies any leg swelling. Patient denies any chest pain or palpitations. Patient denies any abdominal pain patient's nausea vomiting diarrhea per patient denies headache patient denies numbness weakness per patient denies any lightheadedness or dizziness. - Related Data Home Medications Medication Instructions Recorded Confirmed Albuterol Sulfate [Proair Hfa] 1 puff INHALATION RT-Q4H PRN 10/09/21 10/09/21 Esomeprazole Magnesium [NexIUM 20 mg PO DAILY 10/09/21 10/09/21 24Hr] Allergies Allergy/AdvReac Type Severity Reaction Status Date / Time codeine AdvReac Nausea & Verified 10/09/21 11:14 Vomiting Review of Systems ROS Statement: Those systems with pertinent positive or pertinent negative responses have been documented in the HPI. ROS Other: All systems not noted in ROS Statement are negative. Past Medical History Past Medical History: GERD/Reflux History of Any Multi-Drug Resistant Organisms: None Reported Past Surgical History: Bladder Surgery, Cholecystectomy Additional Past Surgical History / Comment(s): Bladder sling, vulvar surgery for neoplasm. Past Anesthesia/Blood Transfusion Reactions: No Reported Reaction Additional Past Anesthesia/Blood Transfusion Reaction / Comment(s): "Low O2 with one surgery". Past Psychological History: No Psychological Hx Reported Smoking Status: Current every day smoker Past Alcohol Use History: None Reported Past Drug Use History: None Reported - Past Family History Father Family Medical History: Cancer Additional Family Medical History / Comment(s): Lung cancer. Mother Family Medical History: Cancer Additional Family Medical History / Comment(s): Cervical cancer. Sister(s) Family Medical History: Deep Vein Thrombosis (DVT) General Exam - General Exam Comments Initial Comments: GENERAL: Patient is well-developed and well-nourished. Patient is nontoxic and well-hydrated and is in mild distress. ENT: Neck is soft and supple. No significant lymphadenopathy is noted. Oropharynx is clear. Moist mucous membranes. Neck has full range of motion without eliciting any pain. EYES: The sclera were anicteric and conjunctiva were pink and moist. Extraocular movements were intact and pupils were equal round and reactive to light. Eyelids were unremarkable. PULMONARY: Patient has limited air movement and has diffuse wheezing. CARDIOVASCULAR: There is a regular rate and rhythm without any murmurs gallops or rubs. ABDOMEN: Soft and nontender with normal bowel sounds. SKIN: Skin is clear with no lesions or rashes and otherwise unremarkable. NEUROLOGIC: Patient is alert and oriented x3. Cranial nerves II through XII are grossly intact. Motor and sensory are also intact. Normal speech, volume and content. Symmetrical smile. MUSCULOSKELETAL: Normal extremities with adequate strength and full range of motion. LYMPHATICS: No significant lymphadenopathy is noted PSYCHIATRIC: Normal psychiatric evaluation. Limitations: no limitations Course Vital Signs 10/09/21 10/09/21 10/09/21 09:21 09:50 10:20 Temperature 97.7 F Pulse Rate 106 H 98 Respiratory 20 20 22 Rate Blood Pressure 152/101 159/101 O2 Sat by Pulse 92 L 92 L Oximetry 10/09/21 10/09/21 11:28 11:36 Temperature Pulse Rate 96 94 Respiratory 18 18 Rate Blood Pressure O2 Sat by Pulse Oximetry Medical Decision Making - Medical Decision Making Patient has been on 11 days of steroids. Patient states anytime she gets relief is when she is taking an albuterol treatment from her mother's nebulizer. Patient received 2 albuterol treatments here he continues to wheeze and feel tight around the chest. Patient also received steroids. Chest x-ray shows no acute abnormality. I spoke with some physicians he agreed to admit the patient admitted the patient remaining orders. I consulted pulmonary. - Lab Data Result diagrams: 10/09/21 10:07 10/09/21 10:07 Lab Results 10/09/21 10/09/21 10/09/21 Range/Units 10:07 10:07 10:07 WBC 9.6 (3.8-10.6) k/uL RBC 4.54 (3.80-5.40) m/uL Hgb 14.9 (11.4-16.0) gm/dL Hct 45.1 (34.0-46.0) % MCV 99.2 (80.0-100.0) fL MCH 32.9 (25.0-35.0) pg MCHC 33.1 (31.0-37.0) g/dL RDW 12.5 (11.5-15.5) % Plt Count 300 (150-450) k/uL MPV 7.8 Neutrophils % 57 % Lymphocytes % 25 % Monocytes % 6 % Eosinophils % 11 % Basophils % 1 % Neutrophils # 5.4 (1.3-7.7) k/uL Lymphocytes # 2.3 (1.0-4.8) k/uL Monocytes # 0.6 (0-1.0) k/uL Eosinophils # 1.0 H (0-0.7) k/uL Basophils # 0.1 (0-0.2) k/uL PT 9.9 (9.0-12.0) sec INR 0.9 (<1.2) APTT 23.9 (22.0-30.0) sec D-Dimer 0.19 (<0.60) mg/L FEU Sodium 136 L (137-145) mmol/L Potassium 4.7 (3.5-5.1) mmol/L Chloride 103 (98-107) mmol/L Carbon Dioxide 23 (22-30) mmol/L Anion Gap 10 mmol/L BUN 10 (7-17) mg/dL Creatinine 0.54 (0.52-1.04) mg/dL Est GFR (CKD-EPI)AfAm >90 (>60 ml/min/1.73 sqM) Est GFR (CKD-EPI)NonAf >90 (>60 ml/min/1.73 sqM) Glucose 102 H (74-99) mg/dL Plasma Lactic Acid Abram (0.7-2.0) mmol/L Calcium 9.2 (8.4-10.2) mg/dL Magnesium 2.2 (1.6-2.3) mg/dL Total Bilirubin 1.2 (0.2-1.3) mg/dL AST 28 (14-36) U/L ALT 24 (4-34) U/L Alkaline Phosphatase 60 (38-126) U/L Troponin I (0.000-0.034) ng/mL Total Protein 7.6 (6.3-8.2) g/dL Albumin 4.5 (3.5-5.0) g/dL Coronavirus (PCR) (Not Detectd) 10/09/21 10/09/21 10/09/21 Range/Units 10:07 10:07 10:07 WBC (3.8-10.6) k/uL RBC (3.80-5.40) m/uL Hgb (11.4-16.0) gm/dL Hct (34.0-46.0) % MCV (80.0-100.0) fL MCH (25.0-35.0) pg MCHC (31.0-37.0) g/dL RDW (11.5-15.5) % Plt Count (150-450) k/uL MPV Neutrophils % % Lymphocytes % % Monocytes % % Eosinophils % % Basophils % % Neutrophils # (1.3-7.7) k/uL Lymphocytes # (1.0-4.8) k/uL Monocytes # (0-1.0) k/uL Eosinophils # (0-0.7) k/uL Basophils # (0-0.2) k/uL PT (9.0-12.0) sec INR (<1.2) APTT (22.0-30.0) sec D-Dimer (<0.60) mg/L FEU Sodium (137-145) mmol/L Potassium (3.5-5.1) mmol/L Chloride (98-107) mmol/L Carbon Dioxide (22-30) mmol/L Anion Gap mmol/L BUN (7-17) mg/dL Creatinine (0.52-1.04) mg/dL Est GFR (CKD-EPI)AfAm (>60 ml/min/1.73 sqM) Est GFR (CKD-EPI)NonAf (>60 ml/min/1.73 sqM) Glucose (74-99) mg/dL Plasma Lactic Acid Abram 2.0 (0.7-2.0) mmol/L Calcium (8.4-10.2) mg/dL Magnesium (1.6-2.3) mg/dL Total Bilirubin (0.2-1.3) mg/dL AST (14-36) U/L ALT (4-34) U/L Alkaline Phosphatase (38-126) U/L Troponin I <0.012 (0.000-0.034) ng/mL Total Protein (6.3-8.2) g/dL Albumin (3.5-5.0) g/dL Coronavirus (PCR) Not Detected (Not Detectd) Disposition Clinical Impression: Acute exacerbation of chronic obstructive pulmonary disease Disposition: ADMITTED IP TO THIS HOSP Referrals: Antonio Milian MD [Primary Care Provider] - 1-2 days Time of Disposition: 11:53
--- NOTE | 2021-10-09 10:44 | XR ---
EXAMINATION TYPE: XR chest 2V DATE OF EXAM: 10/09/2021 COMPARISON: 02/16/2020 HISTORY: Chest pain TECHNIQUE: Frontal and lateral views of the chest are obtained. FINDINGS: There is no focal air space opacity. No evidence for pneumothorax. No pleural effusion. The cardiac silhouette size is within normal limits. The osseous structures are grossly intact. IMPRESSION: 1. No acute cardiopulmonary process.
[2021-10-09 11:06] LABS: Basophils # (A) 0.1 k/uL (0-0.2); Basophils % (A) 1 %; Eosinophils % (A) 11 %; HCT 45.1 % (34.0-46.0); HGB 14.9 gm/dL (11.4-16.0); Lymphocytes # (A) 2.3 k/uL (1.0-4.8); Lymphocytes % (A) 25 %; MCH 32.9 pg (25.0-35.0); MCHC 33.1 g/dL (31.0-37.0); MCV 99.2 fL (80.0-100.0); Mean Platelet Volume 7.8; Monocytes # (A) 0.6 k/uL (0-1.0); Monocytes % (A) 6 %; Neutrophils # (A) 5.4 k/uL (1.3-7.7); Neutrophils % (A) 57 %; Platelet Count 300 k/uL (150-450); RBC 4.54 m/uL (3.80-5.40); RDW 12.5 % (11.5-15.5); WBC 9.6 k/uL (3.8-10.6)
[2021-10-09 11:10] LABS: AST 28 U/L (14-36); African American GFR (CKD) >90 (>60 ml/min/1.73 sqM); Albumin 4.5 g/dL (3.5-5.0); Alkaline Phosphatase 60 U/L (38-126); Carbon Dioxide 23 mmol/L (22-30); Glucose 102 mg/dL (74-99); Non-African American GFR(CKD) >90 (>60 ml/min/1.73 sqM); Total Protein 7.6 g/dL (6.3-8.2)
[2021-10-09 11:12] LABS: ALT 24 U/L (4-34); Anion Gap 10 mmol/L; Blood Urea Nitrogen 10 mg/dL (7-17); Calcium 9.2 mg/dL (8.4-10.2); Chloride 103 mmol/L (98-107); Magnesium 2.2 mg/dL (1.6-2.3); Sodium 136 mmol/L (137-145); Total Bilirubin 1.2 mg/dL (0.2-1.3)
[2021-10-09 11:15] LABS: Potassium 4.7 mmol/L (3.5-5.1)
[2021-10-09 11:27] LABS: INR 0.9 (<1.2); Partial Thromboplastin Time 23.9 sec (22.0-30.0); Prothrombin Time 9.9 sec (9.0-12.0)
[2021-10-09] MEDS ORDERED: IPRATROPIUM-ALBUTEROL 3 ML NEB INHALATION PRN (11:56)
[2021-10-09] MEDS: NICOTINE 21MG/24HR PATCH TRANSDERM SCH (13:45)
--- NOTE | 2021-10-09 13:55 | P.CNPUL ---
History of Present Illness Consult date: 10/09/21 Requesting physician: Terri Land Reason for consult: dyspnea, COPD Chief complaint: Shortness of breath, cough, congestion History of present illness: This is a very pleasant 46-year-old female patient who forced with Dr. Milian as her primary care provider. She has a history of chronic and ongoing tobacco dependence, chronic obstructive pulmonary disease on Xopenex as needed in the ou tpatient setting, obesity, gastroesophageal reflux disease, benign breast biopsy, vulvar surgery for neoplasm. She presented to the emergency room yesterday with complaints of increasing shortness of breath cough and congestion. She had been on steroids and antibiotics in the outpatient test setting without much improvement. COVID-19 screen was negative. She has received both vaccine and is boosted. She is seen today in consultation in the emergency department. She currently sitting up on the stretcher. Awake and alert in no acute distress. Breathing a bit easier today compared to yesterday. She does still have wheezing and dyspnea on minimal exertion. She is maintaining O2 saturations in the 90s on 2 L/m per nasal cannula. She's been afebrile. Hemodynamically stable. White count 9.6. Hemoglobin 14.9. D-dimer 0.19. Sodium 126. Potassium 4.7. Creatinine 0.54. Troponin negative 1. Chest x-ray reveals no acute pulmonary process. Review of Systems REVIEW OF SYSTEMS: CONSTITUTIONAL: Denies any recent significant weight loss or weight gain. EYES: Denies change in vision. EARS, NOSE, MOUTH, THROAT: Denies headaches, denies sore throat. CARDIOVASCULAR: Denies chest pain, palpitations or syncopal episodes. RESPIRATORY: Positive for shortness of breath, cough, congestion no hemoptysis. GASTROINTESTINAL: Denies change in appetite, denies abdominal pain GENITOURINARY: Denies hematuria, denies infections. MUSKULOSKELETAL: Denies pain, denies swelling. INTEGUMENTARY: Denies rash, denies eczema. NEUROLOGICAL: Denies recent memory loss, no recent seizure activity. PSYCHIATRIC: Denies anxiety, denies depression. HEMATOLOGIC/LYMPHATIC: Denies anemia, denies enlarged lymph nodes. Past Medical History Past Medical History: GERD/Reflux History of Any Multi-Drug Resistant Organisms: None Reported Past Surgical History: Bladder Surgery, Cholecystectomy Additional Past Surgical History / Comment(s): Bladder sling, vulvar surgery for neoplasm. Past Anesthesia/Blood Transfusion Reactions: No Reported Reaction Additional Past Anesthesia/Blood Transfusion Reaction / Comment(s): "Low O2 with one surgery". Past Psychological History: No Psychological Hx Reported Smoking Status: Current every day smoker Past Alcohol Use History: None Reported Past Drug Use History: None Reported - Past Family History Father Family Medical History: Cancer Additional Family Medical History / Comment(s): Lung cancer. Mother Family Medical History: Cancer Additional Family Medical History / Comment(s): Cervical cancer. Sister(s) Family Medical History: Deep Vein Thrombosis (DVT) Medications and Allergies Home Medications Medication Instructions Recorded Confirmed Type Albuterol Sulfate [Proair Hfa] 1 puff INHALATION RT-Q4H PRN 10/09/21 10/09/21 History Esomeprazole Magnesium [NexIUM 20 mg PO DAILY 10/09/21 10/09/21 History 24Hr] Allergies Allergy/AdvReac Type Severity Reaction Status Date / Time codeine AdvReac Nausea & Verified 10/09/21 11:14 Vomiting Physical Exam Vitals: Vital Signs Temp Pulse Resp BP Pulse Ox 10/09/21 13:31 100 18 149/91 93 L 10/09/21 12:02 95 20 148/95 93 L 10/09/21 11:36 94 18 10/09/21 11:28 96 18 10/09/21 10:20 98 22 159/101 92 L 10/09/21 09:50 20 10/09/21 09:21 97.7 F 106 H 20 152/101 92 L Intake and Output 10/08/21 10/09/21 10/09/21 22:59 06:59 14:59 Other: Weight 92.079 kg GENERAL EXAM: Alert, very pleasant 46-year-old female patient, 2 L nasal cannula, comfortable in no apparent distress. HEAD: Normocephalic. EYES: Normal reaction of pupils, equal size. NOSE: Clear with pink turbinates. THROAT: No erythema or exudates. NECK: No masses, no JVD. CHEST: No chest wall deformity. LUNGS: Equal air entry with few scattered rhonchi, end expiratory wheeze, diminished. CVS: S1 and S2 normal with no audible murmur, regular rhythm. ABDOMEN: No hepatosplenomegaly, normal bowel sounds, no guarding or rigidity. SPINE: No scoliosis or deformity SKIN: No rashes CENTRAL NERVOUS SYSTEM: No focal deficits, tone is normal in all 4 extremities. EXTREMITIES: There is no peripheral edema. No clubbing, no cyanosis. Peripheral pulses are intact. Results - Laboratory Findings CBC and BMP: 10/09/21 10:07 10/09/21 10:07 PT/INR, D-dimer PT 9.9 sec (9.0-12.0) 10/09/21 10:07 INR 0.9 (<1.2) 10/09/21 10:07 D-Dimer 0.19 mg/L FEU (<0.60) 10/09/21 10:07 Abnormal lab findings: Abnormal Labs 10/09/21 10/09/21 10:07 10:07 Eosinophils # 1.0 H Sodium 136 L Glucose 102 H - Diagnostic Findings Chest x-ray: image reviewed Assessment and Plan Assessment: 1 Acute exacerbation of chronic obstructive pulmonary disease without any clear evidence of pneumonia. No leukocytosis. No fever. Coronavirus not detected. 2 Chronic and ongoing tobacco dependence of 40 years 3 Obesity 4 History of gastroesophageal reflux disease 5 History of vulvar cancer 6 Benign breast biopsy Plan: The patient was seen and evaluated Chest x-ray reveals no acute process Continue DuoNeb inhalations, IV Solu medrol Add Symbicort Educated regarding the importance of complete smoking cessation NicoDerm patches applied Possibly home in the next 24-48 hours We will continue to follow and make further recommendations based on her clinical status I, the cosigning physician, performed a history & physical examination of the patient. Lungs sounds with bilateral end expiratory wheeze, few scattered rhonchi. Maintaining good O2 saturations in the 90s on 2 L/m per nasal cannula. I discussed the assessment and plan of care with my nurse practitioner, Tammie Parish. I attest to the above consultation as dictated by her. Time with Patient: Greater than 30
--- NOTE | 2021-10-09 14:07 | P.HPIM ---
<Shane Spears - Last Filed: 10/09/21 13:57> History of Present Illness H&P Date: 10/09/21 History of Presenting Illness: Patient is a 46-year-old female with a past medical history of COPD with continued nicotine use, obesity, and GERD. She presented to the emergency department with a chief complaint of cough and shortness of breath beginning 09/17/2021. Patient reports she has completed course of antibiotics, steroids, and was tested for Covid with negative results. Patient states despite all of this treatment she continues to have significant shortness of breath worse with exertion. She reports being diagnosed with COPD by Dr. Howell approximately 3 years ago and is on as needed Xopenex inhaler. She states long-standing history of daily nicotine use smoking at least one pack per day 31 years. Patient reports over the past year she has attempted to cut back a bit and states she has not smoked in the past 16 days. She denies having any fevers, chills, heada wilfrido, lightheadedness, dizziness, chest pain, palpitations, abdominal pain, nausea, vomiting, or experiencing any numbness/tingling/weakness in extremities. In the emergency department, patient underwent full evaluation. Chest x-ray negative for acute cardiopulmonary process. Labs including CBC, BMP, liver profile, and coags were all unremarkable. Covid PCR negative. EKG showing normal sinus rhythm at 94 bpm with no noted T-wave or ST abnormalities. Patient was given Solu-Medrol 125 mg IV 1 dose along with nebulizer treatment and admitted under our services with consultation to pulmonology for COPD with acute exacerbation. Review of systems: Pertinent positives and negatives as discussed in HPI, a complete review of systems was performed and all other systems are negative. Physical exam: Vital signs reviewed and stable. General: Nontoxic, no distress and appears stated age. Derm: Skin warm and dry, normal coloration for ethnicity. Head: Atraumatic, normocephalic and symmetric. Eyes: EOMs intact, no lid lag, and anicteric sclera Mouth: no lip lesions, mucus membranes moist Cardiovascular: Tachycardic rate and regular rhythm with normal S1S2, no murmur, positive posterior tibial pulses bilaterally, and cap refill < 2 seconds. Lungs: Respirations even, regular, and unlabored on 2 L O2 with SpO2 of 93%.. Lungs Abdominal: soft, nontender to palpation, no guarding, no appreciable organomegaly Ext: ROM intact. No gross muscle atrophy, no edema, no contractures Neuro: Speech clear, face symmetrical and CN II-XII grossly intact with no noted focal neuro deficits Psych: Alert and oriented to person, place, time, and situation. Appropriate and pleasant affect. Assessment and Plan of Care: COPD exacerbation Nicotine dependence -Oxygenation to be administered and titrated as needed to maintain SPO2 equal to or greater than 92% -Telemetry monitoring. -Monitor Pulse-oximetry -Duonebs scheduled for times daily and as needed for SOB and/or wheezing -Incentive Spirometry, encourage use 10-15 times hourly while awake -Steroids: Solu-Medrol -Symbicort -Continue to encourage and educate the patient on the importance of smoking cessation and risks associated with continued use. -Nicotine patch GERD -Continue daily medication regimen with Nexium. The patient is admitted with an anticipated left than 2 midnight stay for evaluation of COPD CODE STATUS: Full code DVT prophylaxis: Lovenox Discussed with: Patient and RN Anticipated discharge date: Tomorrow Anticipated discharge place: Home A total of 40 minutes was spent on the care of this complex patient more than 50% of the time was spent in counseling and care coordination. Past Medical History Past Medical History: GERD/Reflux History of Any Multi-Drug Resistant Organisms: None Reported Past Surgical History: Bladder Surgery, Cholecystectomy Additional Past Surgical History / Comment(s): Bladder sling, vulvar surgery for neoplasm. Past Anesthesia/Blood Transfusion Reactions: No Reported Reaction Additional Past Anesthesia/Blood Transfusion Reaction / Comment(s): "Low O2 with one surgery". Past Psychological History: No Psychological Hx Reported Smoking Status: Current every day smoker Past Alcohol Use History: None Reported Past Drug Use History: None Reported - Past Family History Father Family Medical History: Cancer Additional Family Medical History / Comment(s): Lung cancer. Mother Family Medical History: Cancer Additional Family Medical History / Comment(s): Cervical cancer. Sister(s) Family Medical History: Deep Vein Thrombosis (DVT) Medications and Allergies Home Medications Medication Instructions Recorded Confirmed Type Albuterol Sulfate [Proair Hfa] 1 puff INHALATION RT-Q4H PRN 10/09/21 10/09/21 History Esomeprazole Magnesium [NexIUM 20 mg PO DAILY 10/09/21 10/09/21 History 24Hr] Allergies Allergy/AdvReac Type Severity Reaction Status Date / Time codeine AdvReac Nausea & Verified 10/09/21 11:14 Vomiting Physical Exam Vitals: Vital Signs Temp Pulse Resp BP Pulse Ox 10/09/21 12:02 95 20 148/95 93 L 10/09/21 11:36 94 18 10/09/21 11:28 96 18 10/09/21 10:20 98 22 159/101 92 L 10/09/21 09:50 20 10/09/21 09:21 97.7 F 106 H 20 152/101 92 L Intake and Output 10/08/21 10/09/21 10/09/21 22:59 06:59 14:59 Other: Weight 92.079 kg Results CBC & Chem 7: 10/09/21 10:07 10/09/21 10:07 Labs: Abnormal Lab Results - Last 24 Hours (Table) 10/09/21 10/09/21 Range/Units 10:07 10:07 Eosinophils # 1.0 H (0-0.7) k/uL Sodium 136 L (137-145) mmol/L Glucose 102 H (74-99) mg/dL <Brandi Goetz - Last Filed: 10/10/21 09:27> History of Present Illness agree with note and plan Physical Exam Vitals: Vital Signs Temp Pulse Pulse Pulse Resp BP BP 10/10/21 07:53 100 10/10/21 07:38 112 H 10/10/21 07:28 112 H 10/10/21 07:00 97.9 F 97 16 10/10/21 01:43 98.3 F 106 H 16 128/88 10/09/21 19:56 98.5 F 109 H 16 139/86 10/09/21 19:47 112 H 10/09/21 19:36 113 H 10/09/21 19:25 20 10/09/21 18:56 104 H 18 113/93 10/09/21 17:00 97.9 F 101 H 18 147/95 10/09/21 14:35 96 18 10/09/21 13:31 100 18 149/91 10/09/21 12:02 95 20 148/95 10/09/21 11:36 94 18 10/09/21 11:28 96 18 10/09/21 10:20 98 22 159/101 10/09/21 09:50 20 BP Pulse Ox 10/10/21 07:53 10/10/21 07:38 10/10/21 07:28 10/10/21 07:00 116/80 94 L 10/10/21 01:43 94 L 10/09/21 19:56 95 10/09/21 19:47 10/09/21 19:36 10/09/21 19:25 92 L 10/09/21 18:56 93 L 10/09/21 17:00 94 L 10/09/21 14:35 93 L 10/09/21 13:31 93 L 10/09/21 12:02 93 L 10/09/21 11:36 10/09/21 11:28 10/09/21 10:20 92 L 10/09/21 09:50 Intake and Output 10/09/21 10/10/21 10/10/21 22:59 06:59 14:59 Intake Total 240 Balance 240 Intake: Oral 240 Other: # Voids 1 2 1 Weight 92.079 kg Results CBC & Chem 7: 10/09/21 10:07 10/09/21 10:07 Labs: Abnormal Lab Results - Last 24 Hours (Table) 10/09/21 10/09/21 Range/Units 10:07 10:07 Eosinophils # 1.0 H (0-0.7) k/uL Sodium 136 L (137-145) mmol/L Glucose 102 H (74-99) mg/dL
[2021-10-09] MEDS: methylPREDNISolone SOD SUCCI 125 MG/2 ML VIAL IV SCH ×2 (19:01→21:41)
[2021-10-09] MEDS: ALBUTEROL NEBULIZED 2.5 MG/3 ML INHALATION SCH ×2 (19:05→19:36)
[2021-10-09] MEDS: SYMBICORT 160-4.5 MCG INHALER INHALATION SCH (19:36)
[2021-10-09] MEDS ORDERED: MELATONIN 5 MG TABLET PO PRN (21:15)
[2021-10-09] MEDS ORDERED: CALCIUM CARBONATE 500 MG CHEWABLE PO PRN (21:15)
[2021-10-09 21:23] VITALS: RESP 16
[2021-10-10] MEDS: methylPREDNISolone SOD SUCCI 125 MG/2 ML VIAL IV SCH ×2 (03:56→09:12)
[2021-10-10] MEDS: ALBUTEROL NEBULIZED 2.5 MG/3 ML INHALATION SCH ×2 (07:28→11:06)
[2021-10-10] MEDS: SYMBICORT 160-4.5 MCG INHALER INHALATION SCH (07:28)
[2021-10-10] MEDS: NICOTINE 21MG/24HR PATCH TRANSDERM SCH (07:47)
[2021-10-10 07:54] VITALS: BP 116/80; TEMP 97.9
[2021-10-10] MEDS ORDERED: PANTOPRAZOLE 40 MG TABLET PO SCH (09:00)
[2021-10-10] MEDS ORDERED: ENOXAPARIN 40 MG/0.4 ML SYRINGE SQ SCH (09:00)
--- NOTE | 2021-10-10 11:32 | P.PN ---
Subjective Progress Note Date: 10/10/21 Principal diagnosis: COPD exacerbation This is a very pleasant 46-year-old female patient who forced with Dr. Milian as her primary care provider. She has a history of chronic and ongoing tobacco dependence, chronic obstructive pulmonary disease on Xopenex as needed in the outpatient setting, obesity, gastroesophageal reflux disease, benign breast biopsy, vulvar surgery for neoplasm. She presented to the emergency room yesterday with complaints of increasing shortness of breath cough and congestion. She had been on steroids and antibiotics in the outpatient test setting without much improvement. COVID-19 screen was negative. She has received both vaccine and is boosted. She is seen today in consultation in the emergency department. She currently sitting up on the stretcher. Awake and alert in no acute distress. Breathing a bit easier today compared to yesterday. She does still have wheezing and dyspnea on minimal exertion. She is maintaining O2 saturations in the 90s on 2 L/m per nasal cannula. She's been afebrile. Hemodynamically stable. White count 9.6. Hemoglobin 14.9. D-dimer 0.19. Sodium 126. Potassium 4.7. Creatinine 0.54. Troponin negative 1. Chest x-ray reveals no acute pulmonary process. The patient is seen today 10/10/2021 in follow-up on the regular medical floor. She is currently sitting up in bed. Awake and alert in no acute distress. Breathing a bit easier today compared to yesterday. Less bronchospastic and wheezy. She denies any worsening shortness of breath, cough or congestion. No fever chills. She is maintaining O2 saturations in the 90s on room air. She's been afebrile. Hemodynamically stable. She's been maintained on Symbicort, DuoNeb inhalations, IV Solu-Medrol. NicoDerm patch in place. Lovenox for DVT prophylaxis. Objective - Vital Signs Vital signs: Vital Signs Temp 97.9 F 10/10/21 07:00 Pulse 116 H 10/10/21 11:17 Resp 16 10/10/21 07:00 BP 116/80 10/10/21 07:00 Pulse Ox 94 L 10/10/21 07:00 Intake & Output 10/09/21 10/10/21 10/10/21 18:59 06:59 18:59 Intake Total 240 Balance 240 Weight 92.079 kg 92.079 kg Intake: Oral 240 Other: # Voids 2 1 - Exam GENERAL EXAM: Alert, active, pleasant 46-year-old female, on room air, c omfortable in no apparent distress. HEAD: Normocephalic. EYES: Normal reaction of pupils, equal size. NOSE: Clear with pink turbinates. THROAT: No erythema or exudates. NECK: No masses, no JVD. CHEST: No chest wall deformity. LUNGS: Equal air entry with faint end X Dillon wheeze, diminished CVS: S1 and S2 normal with no audible murmur, regular rhythm. ABDOMEN: No hepatosplenomegaly, normal bowel sounds, no guarding or rigidity. SPINE: No scoliosis or deformity SKIN: No rashes CENTRAL NERVOUS SYSTEM: No focal deficits, tone is normal in all 4 extremities. EXTREMITIES: There is no peripheral edema. No clubbing, no cyanosis. Peripheral pulses are intact. - Labs CBC & Chem 7: 10/09/21 10:07 10/09/21 10:07 Assessment and Plan Assessment: 1 Acute exacerbation of chronic obstructive pulmonary disease without any clear evidence of pneumonia. No leukocytosis. No fever. Coronavirus not detected. 2 Chronic and ongoing tobacco dependence of 40 years 3 Obesity 4 History of gastroesophageal reflux disease 5 History of vulvar cancer 6 Benign breast biopsy Plan: The patient was seen and evaluated Stable for discharge from the pulmonary standpoint Complete a prednisone taper starting at 40 mg daily for 4 days Continue Symbicort, albuterol HFA, DuoNeb inhalations Again educated regarding the importance of complete smoking cessation NicoDerm patch applied Follow-up in our office in 1-2 weeks' We'll perform full pulmonary function testing and make further recommendations regarding maintenance medications I, the cosigning physician, performed a history & physical examination of the patient. Lungs sounds with bilateral faint end expiratory wheeze. Maintaining good O2 saturations in the 90s on room air. I discussed the assessment and plan of care with my nurse practitioner, Tammie Parish. I attest to the above note as dictated by her.
[2021-10-10 13:12] VITALS: PULSE 122
--- NOTE | 2021-10-10 14:48 | P.DS ---
<Shane Spears - Last Filed: 10/10/21 14:38> Providers Expected date of discharge: 10/10/21 Hospital Course: Discharge Diagnosis: COPD exacerbation Nicotine dependence GERD Hospital Course: Patient is a 46-year-old female with a past medical history of COPD with continued nicotine use, obesity, and GERD. She presented to the emergency department with a chief complaint of cough and shortness of breath beginning 09/17/2021. Patient reports she has completed course of antibiotics, steroids, and was tested for Covid with negative results. Patient states despite all of this treatment she continues to have significant shortness of breath worse with exertion. She reports being diagnosed with COPD by Dr. Howell approximately 3 years ago and is on as needed Xopenex inhaler. She states long-standing history of daily nicotine use smoking at least one pack per day 31 years. Patient reports over the past year she has attempted to cut back a bit and states she has not smoked in the past 16 days. She denied having any fevers, chills, headache, lightheadedness, dizziness, chest pain, palpitations, abdominal pain, nausea, vomiting, or experiencing any numbness/tingling/weakness in extremities. In the emergency department, patient underwent full evaluation. Chest x-ray negative for acute cardiopulmonary process. Labs including CBC, BMP, liver profile, and coags were all unremarkable. Covid PCR negative. EKG showing normal sinus rhythm at 94 bpm with no noted T-wave or ST abnormalities. Patient was given Solu-Medrol 125 mg IV 1 dose along with nebulizer treatment and admitted under our services with consultation to pulmonology for COPD with acute exacerbation. Patient received Solu-Medrol 60 mg IV push every 6 hours throughout hospitalization along with scheduled nebulizer treatments. She was started on Symbicort. Patient showed significant improvement overnight. She remained tachycardic however was receiving scheduled albuterol treatments. D- dimer was negative at 0.19. Patient reports full resolution of shortness of breath and denies any headache, lightheadedness, dizziness, chest pain, palpitations, or experiencing any numbness/tingling/weakness/swelling in her extremities. Patient requesting discharge this morning as her is going out of town and she needs to get home with her children. She shows no signs of acute distress at this time. Patient medically stable for discharge home. Was educated on continued use of incentive spirometer and educated on the importance of smoking cessation. Patient to follow-up with PCP and pulmonology. Physical exam: Vital signs reviewed and stable. General: Nontoxic, no distress and appears stated age. Derm: Skin warm and dry, normal coloration for ethnicity. Head: Atraumatic, normocephalic and symmetric. Eyes: EOMs intact, no lid lag, and anicteric sclera Mouth: no lip lesions, mucus membranes moist Cardiovascular: Tachycardic rate and regular rhythm with normal S1S2, no murmur, positive posterior tibial pulses bilaterally, and cap refill < 2 seconds. Lungs: Respirations even, regular, and unlabored on room air with SpO2 of 94% Lungs tight diminished with diffuse bilateral expiratory wheezes noted. No rhonchi, rales, or crackles noted. Abdominal: soft, nontender to palpation, no guarding, no appreciable organomegaly Ext: ROM intact. No gross muscle atrophy, no edema, no contractures Neuro: Speech clear, face symmetrical and CN II-XII grossly intact with no noted focal neuro deficits Psych: Alert and oriented to person, place, time, and situation. Appropriate and pleasant affect. \ A total of 45 minutes of time were spent preparing this complex discharge summary. Patient Condition at Discharge: Stable Plan - Discharge Summary New Discharge Prescriptions: New Budesonide-Formot 160-4.5 Mcg [Symbicort 160-4.5 Mcg Inhaler] 2 puff INHALATION RT-BID #1 inh predniSONE 50 mg PO DAILY 5 Days #5 tablet Continue Esomeprazole Magnesium [NexIUM 24Hr] 20 mg PO DAILY Changed Albuterol Sulfate [Proair Hfa] 2 puff INHALATION RT-Q4H PRN #1 inh PRN Reason: Shortness Of Breath Discharge Medication List Esomeprazole Magnesium [NexIUM 24Hr] 20 mg PO DAILY 10/09/21 [History] Albuterol Sulfate [Proair Hfa] 2 puff INHALATION RT-Q4H PRN #1 inh 10/10/21 [Rx] Budesonide-Formot 160-4.5 Mcg [Symbicort 160-4.5 Mcg Inhaler] 2 puff INHALATION RT-BID #1 inh 10/10/21 [Rx] predniSONE 50 mg PO DAILY 5 Days #5 tablet 10/10/21 [Rx] Follow up Appointment(s)/Referral(s): Antonio Milian MD [Primary Care Provider] - 1-2 days Junior Prado DO [Doctor of Osteopathic Medicine] - 10/24/21 3:45 pm Patient Instructions/Handouts: How to Stop Smoking (DC), COPD (Chronic Obstructive Pulmonary Disease) (DC) Activity/Diet/Wound Care/Special Instructions: Activity: As tolerated. Take breaks as needed. Diet: Heart healthy and carb consistent diet. Avoid salts, or foods with hidden salts such as canned or boxed foods and frozen dinners. Extra salt makes your heart work harder and traps the fluid in your body for longer. Special Instructions: Take all of your medications as directed and remember to keep all of your doctor's appointments and follow-up as needed. Strongly encourage you to stop smoking. Thank you for allowing us to participate in your care, it was truly a pleasure having you for our patient!!! Last received steroids through your iv at 0930 Last received Albuterol at 1100 Last received Symbicort at [address] with return or worsening of the symptoms that brought you here or any concerns Discharge Disposition: HOME SELF-CARE <Brandi Goetz - Last Filed: 10/11/21 09:47> Providers Date of admission: 10/09/21 11:56 Attending physician: Terri Land, DO agree with plan and note Consults: 10/09/21 11:53 Consult Physician Routine Consulting Provider: Jasmine Hunter Consult Reason/Comments: COPD Do you want consulting provider notified?: Yes Primary care physician: Rafal Milian
== END 2021-10-10 14:10 | disposition home or self-care (01) ==
LOC: EC 09:19 → 6NMEDSUR 11:56
PROVIDERS: ADMIT Internal Medicine; ATTEND Internal Medicine
DX: J44.1 Chronic obstructive pulmonary disease with (acute) exacerbation (principal); F17.210 Nicotine dependence, cigarettes, uncomplicated; K21.9 Gastro-esophageal reflux disease without esophagitis; R00.0 Tachycardia, unspecified; Z20.822 Contact with and (suspected) exposure to COVID-19; E66.9 Obesity, unspecified; Z68.34 Body mass index [BMI] 34.0-34.9, adult; Z71.6 Tobacco abuse counseling; Z88.5 Allergy status to narcotic agent; Z79.899 Other long term (current) drug therapy; Z71.3 Dietary counseling and surveillance; Z90.49 Acquired absence of other specified parts of digestive tract; Z85.44 Personal history of malignant neoplasm of other female genital organs; Z80.1 Family history of malignant neoplasm of trachea, bronchus and lung; Z80.49 Family history of malignant neoplasm of other genital organs; Z82.49 Family history of ischemic heart disease and other diseases of the circulatory system
CPT/HCPCS: 99285; 96376 ×3; 96372; 96374; 36415; 94640 ×4; 93005; 85379; 80053; 83605; 83735; 84484; 85025; 85610; 85730; 87635; 71046; G0378 ×2; J2930 ×2; J1650

== ENCOUNTER → 2022-12-30 | Outpatient (CLI) | payer MEDICAID, OTHER ==
--- NOTE | 2022-12-31 19:34 | MM ---
Reason for Exam: Screening (asymptomatic). Patient History: Menarche at age 13. First Full-Term at age 29. 05/15/2021, Benign Core Biopsy on the right side. 02/14/2021, High risk Cyst Aspiration on the right side. 02/14/2021, High risk Core Biopsy on the right side. Risk Values: Bindu 5 year model risk: 2.3%. NCI Lifetime model risk: 16.0%. Prior Study Comparison: 02/14/2021 Right Diagnostic Mammogram, [facility]. 08/08/2021 Left Diagnostic Ultrasound, [facility]. Tissue Density: The breast tissue is heterogeneously dense. This may lower the sensitivity of mammography. Findings: Analyzed By CAD. Interval post excisional changes lateral right breast. Otherwise, areas of asymmetric density remain unchanged. There is no suspicious group of microcalcifications or new suspicious mass in either breast. Overall Assessment: Benign, BI-RAD 2 Management: Screening Mammogram of both breasts in 1 year. 1. Patient should continue monthly self breast exams. 2. A clinical breast exam by your physician is recommended on an annual basis. 3. This exam should not preclude additional follow-up of suspicious palpable abnormalities. Electronically signed and approved by: Angy Harvey M.D. Radiologist
== END | disposition home or self-care (01) ==
LOC: RADMAMWWP 16:39
PROVIDERS: ATTEND Obstetrics & Gynecology
DX: Z12.31 Encounter for screening mammogram for malignant neoplasm of breast (principal)
CPT/HCPCS: 77063; 77067